=== PATIENT | female | born 1965 | race Caucasian/White ===

== ENCOUNTER 2019-12-17 14:40 | Outpatient (CLI) | payer OTHER, SELFPAY ==
--- NOTE | 2019-12-17 14:47 | MM_ITS ---
WS: [id number] BILATERAL SCREENING DIGITAL MAMMOGRAM WITH CAD HISTORY: SCREENING COMPARISON: 08/15/2018 and 04/11/2017 Bilateral CC and MLO views submitted. Computer aided detection analyzed. Breast composition: There are scattered areas of fibroglandular density. No suspicious masses, microc alcifications or architectural distortion. MM/[place] [id number] IMPRESSION: BI-RADS: 1-Negative FOLLOW UP: 1 Year Follow-up
== END 2019-12-17 14:41 | disposition home or self-care (01) ==
LOC: RADSHAW 14:45
PROVIDERS: PCP Family Medicine; Visit Provider Family Medicine
DX: Z12.31 Encounter for screening mammogram for malignant neoplasm of breast (principal)
CPT/HCPCS: 77067

== ENCOUNTER → 2020-12-29 10:24 | Outpatient (BNVA) | payer OTHER, SELFPAY | PROVIDERS: PCP Family Medicine; Visit Provider Family Medicine | DX: Z12.11 Encounter for screening for malignant neoplasm of colon (principal) | CPT/HCPCS: 82270 ==

== ENCOUNTER 2021-02-03 07:50 | Outpatient (CLI) | payer OTHER, SELFPAY ==
--- NOTE | 2021-02-03 07:59 | MM_ITS ---
WS: [id number] BILATERAL SCREENING DIGITAL MAMMOGRAM WITH CAD HISTORY: SCREENING COMPARISON: 12/17/2019 and 08/15/2018 Bilateral CC and MLO views submitted. Computer aided detection analyzed. Breast composition: There are scattered areas of fibroglandular density. No suspicious masses, microc alcifications or architectural distortion. MM/[place] [id number] IMPRESSION: BI-RADS: 1-Negative FOLLOW UP: 1 Year Follow-up
== END 2021-02-03 07:51 | disposition home or self-care (01) ==
LOC: RADSHAW 07:54
PROVIDERS: PCP Family Medicine; Visit Provider Family Medicine
DX: Z12.31 Encounter for screening mammogram for malignant neoplasm of breast (principal)
CPT/HCPCS: 77067

== ENCOUNTER → 2022-01-11 06:44 | Outpatient (BNVA) | payer OTHER, SELFPAY | PROVIDERS: Visit Provider Family Medicine | DX: Z00.00 Encounter for general adult medical examination without abnormal findings (principal); I10 Essential (primary) hypertension; J45.909 Unspecified asthma, uncomplicated; F41.9 Anxiety disorder, unspecified; Z12.11 Encounter for screening for malignant neoplasm of colon | CPT/HCPCS: 82270 ==

== ENCOUNTER 2022-03-17 07:35 | Outpatient (CLI) | payer OTHER, SELFPAY ==
--- NOTE | 2022-03-17 07:45 | MM_ITS ---
WS: [id number] VIEWS: MLO and CC views both breasts. 3D digital tomosynthesis is also included in this exam. Comparison made with prior exam of 05/07/2014, 01/31/2016, 04/11/2017, 08/15/2018, 02/03/2021.. Findings: There was no sign of mass, architectural distortion or suspicious calcification in either breast. Fa [place]ty MM/[place] [id number] Impression: BI-RADS: 1-Negative FOLLOW-UP: 1 Year Follow-up This mammogram was also analyzed by the Computer Aided Detection System R2 Imag e [employer].
== END 2022-03-17 07:36 | disposition home or self-care (01) ==
PROVIDERS: Visit Provider Family Medicine
DX: Z12.31 Encounter for screening mammogram for malignant neoplasm of breast (principal)
CPT/HCPCS: 77063; 77067

== ENCOUNTER 2023-07-26 07:50 | Outpatient (CLI) | payer OTHER, SELFPAY ==
--- NOTE | 2023-07-26 07:54 | MM_ITS ---
WS: [id number] VIEWS: MLO and CC views both breasts. 3D digital tomosynthesis is also included in this exam. Comparison made with prior exam of 08/05/2007, 09/08/2008, 10/06/2009, 11/18/2010, 01/09/2012, 05/07/2014, 01/31/2016, 04/11/2017, 08/15/2018, 12/17/2019, 02/03/2021, 03/17/2022, 07/31/2006.. Findings: There was no sign of mass, architectural distortion or suspicious calcification in either breast. 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
== END 2023-07-26 07:51 | disposition home or self-care (01) ==
LOC: RAD 07:50
PROVIDERS: Visit Provider Family Medicine
DX: Z12.31 Encounter for screening mammogram for malignant neoplasm of breast (principal)
CPT/HCPCS: 77063; 77067

== ENCOUNTER 2023-09-18 10:01 | Outpatient (CLI) | payer OTHER, SELFPAY ==
--- NOTE | 2023-09-18 10:10 | XRR_ITS ---
PROCEDURE INFORMATION: Exam: XR Chest Exam date and time: 09/18/2023 10:34 AM Age: 58 years old Clinical indication: Shortness of breath and wheezing; Patient HX: SOB and wheezing x 2 yrs; Additional info: Progressive dyspnea on exertion TECHNIQUE: Imaging protocol: Radiologic exam of the chest. Views: 2 views. COMPARISON: No relevant prior studies available. FINDINGS: Lungs: Unremarkable. No consolidation. Pleural spaces: Unremarkable. No pleural effusion. No pneumothorax. Heart/Mediastinum: Unremarkable. No cardiomegaly. Bones/joints: Unremarkable. XR/XR chest 2V* [id number] IMPRESSION: No acute findings.
== END 2023-09-18 10:02 | disposition home or self-care (01) ==
LOC: RAD 10:02
PROVIDERS: PCP Family Medicine; Visit Provider Family Medicine
DX: J45.909 Unspecified asthma, uncomplicated (principal)
CPT/HCPCS: 71046

== ENCOUNTER 2023-10-25 06:57 | Outpatient (CLI) | payer OTHER, SELFPAY | END 2023-10-25 06:58 | disposition home or self-care (01) | PROVIDERS: PCP Family Medicine; Visit Provider Family Medicine | DX: J45.40 Moderate persistent asthma, uncomplicated (principal) | CPT/HCPCS: 94010 ==

== ENCOUNTER 2024-12-12 11:11 | Outpatient (CLI) | payer OTHER, SELFPAY ==
--- NOTE | 2024-12-12 11:15 | MM_ITS ---
WS: [id number] Bilateral screening 3D tomosynthesis digital mammogram, 12/12/2024 11:17 AM Clinical Data: SCREEN Comparison: 07/26/2023, 03/17/2022, 02/03/2021, 12/07/2019, 08/15/2018, 04/11/2017, 01/31/2016, 05/07/2014, 01/25/2012, 01/09/2012, 11/18/2010, 10/06/2009, 09/08/2008, 01/31/2008, 08/05/2007, 07/31/2006. Findings: No spiculated masses or clustered calcifications are seen. There are no secondary signs of carcinoma. MM/MM scr BI tomosynthesis [id number] Impression: Negative bilateral mammogram unchanged. Recommend annual screening mammograms. BIRADS: 1 - Negative. FOLLOW UP: 1 Year Follow-up DENSITY: The breasts are almost entirely fatty. The CAD template checker was used
== END 2024-12-12 11:12 | disposition home or self-care (01) ==
LOC: RAD 11:13
PROVIDERS: Visit Provider Family Medicine
DX: Z12.31 Encounter for screening mammogram for malignant neoplasm of breast (principal)
CPT/HCPCS: 77063; 77067